=== PATIENT | male | born 1960 | race African-American/Black ===

== ENCOUNTER 2019-04-27 09:54 | Emergency (ER) | payer BC, OTHER ==
[2019-04-27 09:59] VITALS: BP 134/72; PULSE 68; TEMP 98.1; BMI 35.6
[2019-04-27] MEDS ORDERED: KETOROLAC TROMETHAMINE 30 MG/1 ML VIAL IM ONE (10:08)
[2019-04-27] MEDS ORDERED: KETOROLAC TROMETHAMINE 30 MG/1 ML VIAL ONE (10:13)
--- NOTE | 2019-04-27 10:14 | PDOC ---
History of Present Illness - General Chief Complaint: Pain, Acute Stated Complaint: LT. ARM PAIN Time Seen by Provider: 04/27/19 10:05 History Source: Patient Exam Limitations: No Limitations - History of Present Illness Initial Comments: 04/27/19 10:10 CHIEF COMPLAINT: Arm pain HISTORY OF PRESENT ILLNESS: This is a 58-year-old male with a history of CAD/MA s/p stent one year ago who presents complaining of left arm pain. The patient reports that he stretched both arms out to catch a football about 2 hours ago and felt sudden pain in his left forearm. He did not fall. Since then, he has pain in the forearm with certain movements. He denies recent antibiotic/ quinolone use. No anti-coagulant use (on antiplatelets s/p MA). Vital signs on arrival are unremarkable. REVIEW OF SYSTEMS: GENERAL/CONSTITUTIONAL: No fever or chills. No weakness. No weight change. CARDIOVASCULAR: No chest pain or palpitations. MUSCULOSKELETAL: See HPI. SKIN: No rash or easy bruising. NEUROLOGIC: No headache, vertigo, loss of consciousness, or loss of sensation. HEMATOLOGIC/LYMPHATIC: No anemia, easy bleeding, or history of blood clots. ALLERGIC/IMMUNOLOGIC: No hives or skin allergy. No latex allergy. PHYSICAL EXAM: GENERAL: The patient is awake, alert, and fully oriented, in no acute distress. EXTREMITIES: LUE: No edema or erythema. Normal movement and sensation of fingers , radial and ulnar pulses 2+. Able to bend at elbow with some pain but has severe pain with pronation/supination. Compartments soft. NEUROLOGICAL: Normal speech, normal gait. CN II-XII grossly intact. PSYCH: Normal mood, normal affect. SKIN: Warm, dry, normal turgor, no rashes or lesions noted. Past History - Past Medical History Allergies/Adverse Reactions: Allergies Allergy/AdvReac Type Severity Reaction Status Date / Time No Known Allergies Allergy Verified 04/27/19 09:56 Home Medications: Ambulatory Orders Tramadol HCl 50 mg PO Q6H PRN #5 tablet MDD 4 04/27/19 Cardiac Disorders: Yes COPD: No Diabetes: No HTN: Yes - Surgical History Cardiac Surgery: Yes (STENT X 1) - Immunization History Immunization Up to Date: Yes - Suicide/Smoking/Psychosocial Hx Smoking History: Never smoked Have you smoked in the past 12 months: No Hx Alcohol Use: No Drug/Substance Use Hx: No Substance Use Type: Marijuana *Physical Exam - Vital Signs Last Vital Signs Temp Pulse Resp BP Pulse Ox 98.1 F 68 18 134/72 99 04/27/19 09:57 04/27/19 09:57 04/27/19 09:57 04/27/19 09:57 04/27/19 09:57 ED Treatment Course - RADIOLOGY Radiology Studies Ordered: Category Date Time Status ELBOW-LEFT [RAD] Stat Radiology 04/27/19 10:09 Ordered FOREARM- LEFT [RAD] Stat Radiology 04/27/19 10:08 Ordered Medical Decision Making - Medical Decision Making 04/27/19 10:13 A/P: 58-year-old male with left forearm pain after stretching to catch a football. No fall. 1. Toradol 30 mg IM for pain 2. X-ray left elbow and forearm 2. Reassess 04/27/19 11:52 Pain improved Compartments remain soft Xrays neg Sling, ortho followup *DC/Admit/Observation/Transfer Diagnosis at time of Disposition: Arm pain - Discharge Dispostion Disposition: HOME Condition at time of disposition: Improved Decision to Admit order: No - Prescriptions Prescriptions: Tramadol HCl 50 mg PO Q6H PRN #5 tablet MDD 4 PRN Reason: Severe Pain - Referrals Referrals: Chaparro Malhotra MD [Primary Care Provider] - Cristi Brantley MD [Staff Physician] - (Orthopedics) - Patient Instructions Printed Discharge Instructions: DI for Forearm Muscle Strain Additional Instructions: -Apply heat today, tomorrow begin applying ice -Take Tylenol as needed for pain and Tramadol as prescribed for severe pain at night -Follow up with orthopedics as discussed - you may need further testing if not improving -Return here for sudden/severely worsening pain, swelling, or any other concerning symptoms - Post Discharge Activity Forms/Work/School Notes: Back to Work
== END 2019-04-27 11:26 | disposition home or self-care (01) ==
LOC: JERFT 09:54
PROC: 3E0233Z Introduction of Anti-inflammatory into Muscle, Percutaneous Approach (ICD-10-PCS; principal; 2019-04-27)
DX: M79.652 Pain in left thigh (principal); X50.0XXA Overexertion from strenuous movement or load, initial encounter; Y93.61 Activity, american tackle football; Y92.89 Other specified places as the place of occurrence of the external cause; Y99.8 Other external cause status
CPT/HCPCS: 73070-TC-LT-FY; 73090-TC-LT-FY; 99282-25

== ENCOUNTER 2019-12-05 07:44 | Day surgery (SDC) | payer OTHER ==
[2019-12-05 08:25] LABS: BASO % 0.9 % (0-2.0); EOS % 3.4 % (0-4.5); HEMATOCRIT 42.1 % (35.4-49); HEMOGLOBIN 14.3 GM/dL (11.7-16.9); LYMPH % 34.7 % (8-40); MCH 30.6 pg (25.7-33.7); MEAN CELL VOLUME 90.1 fl (80-96); MEAN PLT VOLUME 10.7 fl (7.5-11.1); MONO % 7.8 % (3.8-10.2); NEUT % 53.2 % (42.8-82.8); PLATELET COUNT 166 K/MM3 (134-434); RBC 4.68 M/mm3 (4.00-5.60); RDW 13.6 % (11.9-15.9); WHITE BLOOD COUNT 7.9 K/mm3 (4.0-10.0)
[2019-12-05 08:38] LABS: INR 1.03 (0.83-1.09); PROTHROMBIN TIME (PATIENT) 12.2 SEC (9.7-13.0)
[2019-12-05 08:48] VITALS: BMI 38.0
[2019-12-05 12:02] VITALS: TEMP 98
[2019-12-05 12:46] VITALS: BP 126/76; PULSE 63
--- NOTE | 2019-12-08 16:11 | PATH ---
Cytology Non-Gynecological Report Patient Name: CATHERINE CHAMORRO [facility]. Rec. #: [id number] /Age/Gender: 1960 (Age: 59) / M Account: [id number] Location: RADIOLOGY INTER Taken: 12/05/2019 Received: 12/05/2019 Reported: 12/08/2019 Physicians: Juan Jose Worrell M.D. Specimen(s) Received PAROTID GLAND, MASS, RIGHT, FINE NEEDLE ASPIRATION Clinical History Solid and cystic right parotid mass Necrotic mass versus cystic mass versus inflammatory process Final Diagnosis PAROTID GLAND, MASS, RIGHT, FINE NEEDLE ASPIRATION: SATISFACTORY FOR EVALUATION. CYSTIC LESION WITH RARE ONCOCYTES. RARE MINUTE AGGREGATES OF ONCOCYTES IN A BACKGROUND OF PROTEINACEOUS MATERIAL/DEBRIS. SEE COMMENT. Comment: See concurrent biopsy ([id number]). Electronically Signed Sulma Bloom M.D. Gross Description Approximately 30 cc of cloudy yellow fluid received fresh. One cytofunnel prepared and Pap stained. One cellblock prepared.
--- NOTE | 2019-12-08 16:45 | PATH ---
Surgical Pathology Report Patient Name: CATHERINE CHAMORRO [facility]. Rec. #: [id number] /Age/Gender: 1960 (Age: 59) / M Account: [id number] Location: RADIOLOGY INTER Taken: 12/05/2019 Received: 12/05/2019 Reported: 12/08/2019 Physicians: Leonard Felder Specimen(s) Received PAROTID GLAND, MASS, RIGHT Clinical History 57-year-old male with solid and cystic parotid gland mass Rule out necrotic mass versus inflammatory process Final Diagnosis PAROTID GLAND, MASS, RIGHT, ULTRASOUND GUIDED CORE BIOPSY: CYSTIC LESION WITH ONCOCYTIC METAPLASIA AND MUCINOUS DIFFERENTIATION. SEE COMMENT. Comment: Biopsy show small fragments of epithelial cells with granular cytoplasm and mucinous differentiation in a background of scant fibrotic tissue with old hemorrhage. Immunohistochemical stains performed and interpreted at [facility] show these epithelial cells are positive for CK7. Rare cells are positive for P63. Additional immunohistochemical stains performed at [place], [place] ([id number]) and interpreted at [facility] show the epithelial cells are positive for SOX-10. Focal staining for DOG-1 is noted. Proliferative [id number] is low (rare cells- positive). Mucin special stain highlights focal mucin. Overall findings show a cystic lesion with oncocytic metaplasia and mucinous differentiation. Findings are limited and non-specific. Differential diagnosis includes a reactive process (oncocytic metaplasia, oncocytosis) and possibility of salivary gland neoplasm (Pleomorphic adenoma vs Acinic cell carcinoma). See concurrent cytology ([id number]). Suggest clinical and radiologic correlation. Positive and negative controls (internal if applicable) show appropriate results. Electronically Signed Sulma Bloom M.D. Gross Description Received in formalin labeled "right parotid gland," is a 0.7 x 0.3 x 0.1 cm aggregate of gardiner soft tissue fragments. The formalin is filtered and the specimen is entirely submitted in one cassette. /12/05/2019 saudi12/05/2019
== END 2019-12-05 12:45 | disposition home or self-care (01) ==
LOC: JRADIR 07:44
PROVIDERS: ATTEND Otolaryngology
PROC: 0CBJ3ZX Excision of Minor Salivary Gland, Percutaneous Approach, Diagnostic (ICD-10-PCS; principal; 2019-12-05)
PROC: 0G9 Endocrine System, Drainage (ICD-10-PCS; 2019-12-05)
DX: K11.8 Other diseases of salivary glands (principal)
CPT/HCPCS: 36415; 76942-TC; 85025; 85610; 87899; 88108; 88305-TC; 88341-TC; 88342-TC

== ENCOUNTER 2020-12-07 07:35 | Emergency (ER) | payer OTHER ==
[2020-12-07 08:00] VITALS: TEMP 98.2; BMI 44.8
[2020-12-07] MEDS ORDERED: SODIUM CHLORIDE 500 ML IV STA (08:32)
[2020-12-07 09:31] LABS: BASO % 0.4 % (0-2.0); EOS % 0.9 % (0-4.5); HEMATOCRIT 38.9 % (35.4-49); HEMOGLOBIN 12.9 GM/dL (11.7-16.9); LYMPH % 20.2 % (8-40); MCH 30.6 pg (25.7-33.7); MCHC 33.1 g/dl (32.0-35.9); MEAN CELL VOLUME 92.4 fl (80-96); MONO % 6.4 % (3.8-10.2); NEUT % 72.1 % (42.8-82.8); PLATELET COUNT 225 K/MM3 (134-434); RBC 4.21 M/mm3 (4.00-5.60); WHITE BLOOD COUNT 10.5 K/mm3 (4.0-10.0)
[2020-12-07 09:34] LABS: INR 1.08 (0.83-1.09); PROTHROMBIN TIME (PATIENT) 13.3 SEC (9.7-13.0)
[2020-12-07 09:37] LABS: ACTIVATED PTT 33.5 SECONDS (25.2-36.5)
[2020-12-07 10:26] LABS: CHLORIDE 107 mmol/L (98-107); SODIUM 136 mmol/L (136-145)
[2020-12-07 10:29] LABS: ALBUMIN 3.4 g/dl (3.4-5.0); BLOOD UREA NITROGEN 10.8 mg/dL (7-18); CALCIUM 8.9 mg/dL (8.5-10.1); CO2 26 mmol/L (21-32); GLUCOSE,RANDOM 102 mg/dL (74-106); MAGNESIUM 2.1 mg/dL (1.8-2.4)
[2020-12-07 10:32] LABS: CREATININE 1.2 mg/dL (0.55-1.3); SGOT/AST 47 U/L (15-37); SGPT/ALT 33 U/L (13-61)
[2020-12-07 10:34] LABS: BILIRUBIN,TOTAL 0.7 mg/dL (0.2-1); TOT PROT 7.4 g/dl (6.4-8.2)
[2020-12-07 10:35] LABS: ALK PHOS 69 U/L (45-117)
[2020-12-07 11:00] LABS: ANION GAP 3 MMOL/L (8-16)
[2020-12-07 11:04] LABS: POTASSIUM 6.3 mmol/L (3.5-5.1)
[2020-12-07 12:25] LABS: POTASSIUM 4.3 mmol/L (3.5-5.1)
[2020-12-07 12:27] LABS: CALCIUM 8.7 mg/dL (8.5-10.1)
[2020-12-07 12:31] LABS: CREATININE 0.9 mg/dL (0.55-1.3)
[2020-12-07 13:11] VITALS: BP 110/65; PULSE 70
[2020-12-07 15:06] LABS: VENOUS BASE EXCESS -1.5 mmol/L (-2-2); VENOUS O2 SATURATION 78.6 % (70-80); VENOUS PCO2 31.1 mmHg (38-52); VENOUS PH 7.456 (7.310-7.410)
== END 2020-12-07 13:53 | disposition home or self-care (01) ==
LOC: JER 07:35
PROC: 3E0337Z Introduction of Electrolytic and Water Balance Substance into Peripheral Vein, Percutaneous Approach (ICD-10-PCS; principal; 2020-12-07)
DX: R42 Dizziness and giddiness (principal)
CPT/HCPCS: 36415; 71045-TC-FY; 80048; 80053; 82375; 82550; 82553; 82803; 83735; 84484; 85025; 85610; 85730; 93005; 93010; 99285-25

== ENCOUNTER 2023-04-29 09:38 | Emergency (ER) | payer OTHER ==
[2023-04-29 09:50] VITALS: BP 132/72; PULSE 70; RESP 18; TEMP 97.5; BMI 38.2
[2023-04-29] MEDS ORDERED: PENICILLIN G BENZATHINE 2,400,000 UNIT/4 ML PFS IM ONE (10:58)
== END 2023-04-29 11:23 | disposition home or self-care (01) ==
LOC: JER 09:38 → JERFT 09:38
DX: R21 Rash and other nonspecific skin eruption (principal)
CPT/HCPCS: 99284-25

== ENCOUNTER 2024-04-22 10:52 | Emergency (ER) | payer OTHER ==
[2024-04-22 11:01] VITALS: BP 126/77; PULSE 60; RESP 18; TEMP 97; BMI 39.3
[2024-04-22] MEDS ORDERED: DIPHTH,PERTUSS(ACELL),TET 0.5 ML DISP.SYRIN IM ONE (12:43)
[2024-04-22] MEDS ORDERED: AMOX TR/POT CLAV 875MG/125MG TABLETS (FP) ONE (12:43)
[2024-04-22] MEDS: DIPHTH,PERTUSS(ACELL),TET 0.5 ML DISP.SYRIN IM ONE (12:48)
[2024-04-22] MEDS: AMOX TR/POT CLAV 875MG/125MG TABLETS (FP) PO ONE (12:49)
[2024-04-22] MEDS ORDERED: RABIES IMMUNE GLOBULIN 300 UNITS/1 ML VIAL ONE (13:08)
[2024-04-22] MEDS ORDERED: RABIES VACCINE (PCEC)/PF 2.5 UNIT/VIAL IM ONE ×2 (13:42→14:10)
[2024-04-22] MEDS: RABIES VACCINE (PCEC)/PF 2.5 UNIT/VIAL IM ONE (13:52)
[2024-04-22] MEDS: RABIES IMMUNE GLOBULIN/PF 300 UNIT/ML (5 ML) VIAL IM ONE (13:52)
== END 2024-04-22 14:38 | disposition home or self-care (01) ==
LOC: JERFT 10:52
PROC: 3E0234Z Introduction of Serum, Toxoid and Vaccine into Muscle, Percutaneous Approach (ICD-10-PCS; principal; 2024-04-22)
DX: S81.851A Open bite, right lower leg, initial encounter (principal); L02.512 Cutaneous abscess of left hand; W55.01XA Bitten by cat, initial encounter; Z23 Encounter for immunization
CPT/HCPCS: 90375; 90675; 90715; 99284-25

== ENCOUNTER 2024-04-25 07:11 | Emergency (ER) | payer OTHER ==
[2024-04-25 07:22] VITALS: BP 126/82; PULSE 59; RESP 18; TEMP 97.9; BMI 38.2
[2024-04-25] MEDS ORDERED: RABIES VACCINE (PCEC)/PF 2.5 UNIT/VIAL IM ONE (07:38)
[2024-04-25] MEDS: RABIES VACCINE (PCEC)/PF 2.5 UNIT/VIAL IM ONE (07:45)
== END 2024-04-25 07:49 | disposition home or self-care (01) ==
LOC: JER 07:11 → JERFT 07:11
PROC: 3E0234Z Introduction of Serum, Toxoid and Vaccine into Muscle, Percutaneous Approach (ICD-10-PCS; principal; 2024-04-25)
DX: Z29.14 Encounter for prophylactic rabies immune globulin (principal)
CPT/HCPCS: 90675; 99281-25

== ENCOUNTER 2024-04-29 06:24 | Emergency (ER) | payer OTHER ==
[2024-04-29 06:33] VITALS: BP 125/77; PULSE 57; RESP 18; TEMP 98.2; BMI 38.2
[2024-04-29] MEDS ORDERED: RABIES VACCINE (PCEC)/PF 2.5 UNIT/VIAL IM ONE (06:51)
[2024-04-29] MEDS: RABIES VACCINE (PCEC)/PF 2.5 UNIT/VIAL IM ONE (06:55)
== END 2024-04-29 07:03 | disposition home or self-care (01) ==
LOC: JER 06:24
PROC: 3E0234Z Introduction of Serum, Toxoid and Vaccine into Muscle, Percutaneous Approach (ICD-10-PCS; principal; 2024-04-29)
DX: Z29.14 Encounter for prophylactic rabies immune globulin (principal)
CPT/HCPCS: 90675; 99281-25

== ENCOUNTER 2024-05-06 05:31 | Emergency (ER) | payer OTHER ==
[2024-05-06 05:40] VITALS: BP 130/80; PULSE 67; RESP 18; TEMP 98.1; BMI 38.2
[2024-05-06] MEDS ORDERED: RABIES VACCINE (PCEC)/PF 2.5 UNIT/VIAL IM ONE (05:43)
[2024-05-06] MEDS: RABIES VACCINE (PCEC)/PF 2.5 UNIT/VIAL IM ONE (05:49)
== END 2024-05-06 05:58 | disposition home or self-care (01) ==
LOC: JER 05:31
PROC: 3E0234Z Introduction of Serum, Toxoid and Vaccine into Muscle, Percutaneous Approach (ICD-10-PCS; principal; 2024-05-06)
DX: Z29.14 Encounter for prophylactic rabies immune globulin (principal)
CPT/HCPCS: 90675; 99281-25